=== PATIENT | female | born 1950 | race Caucasian/White ===

== ENCOUNTER → 2020-04-09 | Outpatient (CLI) | payer MEDICARE, OTHER ==
--- NOTE | 2020-04-09 14:41 | RAD ---
ADDENDUM #1 Addendum: Pathology results from the ultrasound-guided core needle biopsy of the 1.2 cm mass in the upper outer quadrant left breast at the 2:30 o'clock position 8 cm from the nipple indicates focal fibrosis and rare benign microcalcifications with no cytologic atypia or malignancy. Additional comment is made th at the focal fibrosis may represent a partially sampled fibroadenoma. This would explain the mammographic and sonographic findings and is thus considered benign and concor dant. Note that the biopsy target was very firm and did not yield much tissue during biopsy. A six-month follow-up left diagnostic mammogram and possible ultrasound is recommended. Should a susp icious change occur in this mass on surveillance, repeat core needle biopsy or excisional biopsy kiana mera be considered. Electronically signed by: Baldev Reynolds MD (04/16/2020 3:59 PM) [id number] ORIGINAL REPORT Examination: 1. Ultrasound-guided left breast core needle biopsy. 2. Left postprocedure mammogram. INDICATION: 70-year-old woman with an upper-outer quadrant 1.2 cm left breast mass recalled from mamm ographic screening and recommended for biopsy. COMPARISON: 03/08/2020 bilateral mammogram and left diagnostic breast ultrasound of 03/22/2020. TECHNIQUE: Informed consent was obtained and an appropriate procedural pause observed. Using standard sterile te chnique, ultrasound guidance and local anesthesia, multiple core biopsy samples using a 14-gauge biop sy needle were obtained of the 1.2 cm mass in the upper outer left breast at the 2:30 o'clock positio n 8 cm from the nipple. The mass was very firm and satisfactory tissue sampling was challenging. 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 This impac danni performance of the biopsy but ultimately, adequate tissue sampling was felt to have been achieved after 2 passes and an S-shaped biopsy marker was deployed at the biopsy site. Hemostasis was assured direct breast compression for several minutes and the puncture site dressed. Digital left post procedure mammogram showed deployment of the S-shaped biopsy marker at the superome dial margin of the targeted mass. No post biopsy hematoma. Post procedure instructions were reviewed and patient discharged in stable condition to follow up wit h her referring physician. IMPRESSION: Successful ultrasound-guided core needle biopsy of the 1.2 cm mass in the upper outer quadrant left b reast. Pathology results are pending. An addendum will be issued once pathology results become availa ble. The biopsy marker appears in satisfactory position and can serve as a suitable target for needle localization (preferably with mammographic guidance) should that be necessary. Electronically signed by: Baldev Reynolds MD (04/09/2020 2:38 PM) [id number]
--- NOTE | 2020-04-10 22:11 | PATHOLOGY ---
[facility] Accession Number: [id number] . 01 Material submitted: . breast - LEFT BREAST MASS, 2:30, 8CMFN. Modifiers: left, 2:00 . 02 Diagnosis: "Left breast mass 2:30, 8 cm FN, 1.2 cm", needle biopsy: - Benign breast with focal fibrosis and rare benign microcalcifications present; no cytologic atypia or malignancy seen (see comment). . (CLW:mm; 04/10/2020) [facility] 04/10/2020 1253 Local . 02 Comment: The focal fibrosis may represent a partially-sampled fibroadenoma. Of note, this is possibly a small portion of a larger lesion and may not be entirely payroll representative. Clinical and radiographic correlation is required. . The case is co-reviewed with Dr. Jean Marie Tony. . (CLW:mm; 04/10/2020) . 02 Electronically signed: . Tammy Muro MD, Pathologist NPI- [id number] . 01 Gross description: . Received in formalin labeled "Pippa, Margaux, left breast" and further labeled on the requisition as "2:30, 8 cm FN, 1.2 cm" are two fragments of yellow-mast soft tissue measuring in aggregate 1.2 x 0.3 x 0.2 cm. The specimen is submitted entirely in cassettes A1-A2. The specimen is removed from the patient and placed in formalin at 1345 on 04/09/2020. The specimen is removed from formalin at 2340 on 04/09/2020. (SKC; 04/09/2020) SYC/SYC 04/09/2020 1836 Local . 02 Pathologist provided ICD-10: N60.32 . 02 CPT . 021413 Specimen Comment: A courtesy copy of this report has been sent to [phone], [phone] Specimen Comment: [id number] Specimen Comment: Report sent to / Performed at: 01 [facility] [address] [id number] MD Jean Marie Tony MD Phone: [phone] Performed at: 02 [facility] [address] [place], [place] [id number] MD Cortez Hernández MD Phone: [phone]
== END | disposition home or self-care (01) ==
LOC: US 13:12 → EDUNIT# 04-11 08:30
PROVIDERS: ATTEND Specialist
DX: N63.21 Unspecified lump in the left breast, upper outer quadrant (principal); N60.32 Fibrosclerosis of left breast
CPT/HCPCS: 19083; 77065; 88305; C1713; 76942

== ENCOUNTER → 2021-04-02 | Outpatient (CLI) | payer MEDICARE, OTHER ==
--- NOTE | 2021-04-02 14:11 | RAD ---
PROCEDURE: MG DIGITAL BILAT DIAGNOSTIC MAMMO WITH KASHIF HISTORY: The patient is 71 years old and is seen for Reason: FU MAMMO / Spl. Instructions: / History : . Left breast pain. COMPARISON: April 09, 2020 and March 08, 2020 TECHNIQUE: CC and MLO views of both breasts were obtained. Images were processed by the [employer] computer-aided detection system. Targeted ultrasound left breast was also performed. DENSITY: There are scattered fibroglandular densities. FINDINGS: Right breast: Small well-circumscribed masses within the right breast mid depth, unchanged compared t o prior. Scattered calcifications, unchanged compared to prior. Left breast: Unchanged lobulated mass within the left upper outer quadrant with adjacent prior biopsy marker. Additional small stricture or masses, unchanged. Benign-appearing calcifications. Left ultrasound: The patient's pain is within the region of the previous biopsy site. Unchanged mass within the left breast 2:30 position 10 cm from the nipple measures 0.6 x 0.4 cm, unchanged compared to prior. IMPRESSION: 1. Unchanged left breast mass previously biopsied reported as benign. Recommend annual screening mammograms per [employer] guidelines. She will be due in one year. BI-RADS category 2 Benign Patient entered into a reminder system for annual screening mammogram. Electronically signed by: Lyndon Nazario DO (04/02/2021 2:09 PM) [id number]
--- NOTE | 2021-04-02 14:49 | RAD ---
PROCEDURE: US BREAST LT HISTORY: The patient is 71 years old and is seen for Reason: LEFT BREAST PAIN/LUMP / Spl. Instruction s: / History: . Left breast pain. COMPARISON: April 09, 2020 and March 08, 2020 TECHNIQUE: CC and MLO views of both breasts were obtained. Images were processed by the [employer] computer-aided detection system. Targeted ultrasound left breast was also performed. DENSITY: There are scattered fibroglandular densities. FINDINGS: Right breast: Small well-circumscribed masses within the right breast mid depth, unchanged compared t o prior. Scattered calcifications, unchanged compared to prior. Left breast: Unchanged lobulated mass within the left upper outer quadrant with adjacent prior biopsy marker. Additional small stricture or masses, unchanged. Benign-appearing calcifications. Left ultrasound: The patient's pain is within the region of the previous biopsy site. Unchanged mass within the left breast 2:30 position 10 cm from the nipple measures 0.6 x 0.4 cm, unchanged compared to prior. IMPRESSION: 1. Unchanged left breast mass previously biopsied reported as benign. Recommend annual screening mammograms per [employer] guidelines. She will be due in one year. BI-RADS category 2 Benign Patient entered into a reminder system for annual screening mammogram. Electronically signed by: Lyndon Nazario DO (04/02/2021 2:47 PM) [email or web address]
== END ==
LOC: MAMMO 12:48
PROVIDERS: ATTEND Specialist
DX: N63.21 Unspecified lump in the left breast, upper outer quadrant (principal); N63.10 Unspecified lump in the right breast, unspecified quadrant
CPT/HCPCS: 76641; 77066; G0279; 77062